=== PATIENT | male | born 1945 | race Caucasian/White ===

== ENCOUNTER 2020-06-05 10:55 | Outpatient (CLI) | payer MEDICARE, OTHER, SELFPAY ==
--- NOTE | 2020-06-05 11:06 | CT_ITS ---
WS: [id number] CTA OF THE CHEST WITH PULMONARY EMBOLISM PROTOCOL TECHNIQUE: High-resolution contrast enhanced CTA of the chest with coronal and sagittal reformatted i mages with pulmonary embolism protocol. MIP images are also reviewed. CLINICAL INFORMATION: CHEST PAIN/ELEVATED D DIMER COMPARISON: None. DLP: 583.[address] scans at [facility] use at least one of these dose optimization techniques: automat ed exposure control; mA and/or kV adjustment per patient size (includes targeted exams where dose is matched to clinical indication); or iterative reconstruction. FINDINGS: Proximal main pulmonary arteries are normal. Normal segmental and subsegmental pulmonary arteries. No evidence for pulmonary embolus. Normal caliber thoracic aorta. Aortic calcification. Coronary calcif ication. Sternotomy. Prior bypass grafting. Mild chronic emphysematous changes. No acute pulmonary infiltrates. No focal pneumonia or pleural flu id. A few calcified granulomas. Fibrosis in the right middle lobe. Noncalcified nodule in the right m iddle lobe measuring 3 mm. Splenic cyst or hemangioma partially visualized. Adrenal glands are normal . Partially visualized endograft in the abdominal aorta. CT/CT angio chest PE protcl [id number] IMPRESSION: 1. No evidence for pulmonary embolus. 2. No acute pulmonary infiltrates. Chronic emphysematous changes. 3. Normal caliber thoracic aorta. Aortic and coronary calcification. 4. No mediastinal or hilar lymphadenopathy.
[2020-06-05] MEDS: iohexol 350 mg/mL 100 mL Btl IV (12:02)
== END 2020-06-05 10:56 | disposition home or self-care (01) ==
LOC: RAD 11:04
PROVIDERS: PCP Family Medicine; Visit Provider Family Medicine
DX: R07.9 Chest pain, unspecified (principal); R79.89 Other specified abnormal findings of blood chemistry
CPT/HCPCS: 71275

== ENCOUNTER → 2021-02-04 09:46 | Outpatient (BNVA) | payer MEDICARE, OTHER, SELFPAY | PROVIDERS: PCP Family Medicine; Visit Provider Internal Medicine | DX: R12 Heartburn (principal); Z12.11 Encounter for screening for malignant neoplasm of colon; Z20.822 Contact with and (suspected) exposure to COVID-19 | CPT/HCPCS: 87635 ==

== ENCOUNTER 2021-02-11 08:57 | Day surgery (SDC) | payer MEDICARE, OTHER, SELFPAY ==
[2021-02-07 13:35] VITALS: BMI 22.4
--- NOTE | 2021-02-11 09:41 | P.HP_ITS ---
Same Day Surgery H&P Indication for Procedure/HPI DATE OF PROCEDURE: February 11, 2021 CHIEF COMPLAINT/INDICATIONFOR SURGICAL PROCEDURE: Unexplained weight loss unexplained weight loss PREOP DIAGNOSIS: Unexplained weight loss PLANNED PROCEDRUE: Operation Date: 02/11/21 10:00 Proposed Procedures p EGD 95547 R12(Not Applicable) - Blayne Guevara MD s Colonoscopy G0121 Z12.11(Not Applicable) - Blayne Guevara MD Medications/Allergies* Home Medications Medication Instructions Recorded Confirmed Type amiodarone 200 mg tablet 200 mg PO QDAY 08/03/19 02/07/21 History aspirin 81 mg tablet,delayed 81 mg PO QDAY 08/03/19 01/31/21 History release atorvastatin 40 mg tablet 40 mg PO QDAY 08/03/19 02/07/21 History carvedilol 6.25 mg tablet 6.25 mg PO BID 08/03/19 02/07/21 History citalopram 20 mg tablet 20 mg PO QDAY 08/03/19 02/07/21 History nitroglycerin 0.4 mg sublingual 0.4 mg SUBLINGUAL Q5M PRN 08/03/19 02/07/21 History tablet ramipril 1.25 mg capsule 1.25 mg PO QDAY 08/03/19 02/07/21 History tamsulosin 0.4 mg capsule 0.4 mg PO QDAY 08/03/19 02/07/21 History Allergies/Adverse Reactions Allergy/AdvReac Type Severity Reaction Status Date / Time meperidine [From Demerol] Allergy Unknown Unknown Verified 02/07/21 13:31 Pertinent History/Comorbid Conditions* Medical History (Updated 01/31/21 @ 10:42 by Blayne Guevara MD) Anticoagulant long-term use Xarelto ASHD (arteriosclerotic heart disease) Atrial fibrillation Dyslipidemia HTN (hypertension) Myocardial infarction SSS (sick sinus syndrome) Tobacco abuse Varicose veins of anus or rectum Surgical History (Updated 08/05/19 @ 12:08 by Gerard Palma MD) S/P AAA repair Patient had a AAA rupture and emergent repair with a stent graft S/P angioplasty with stent S/P CABG (coronary artery bypass graft) Details not known Status cardiac pacemaker Social History Smoking and tobacco status: current every day smoker cigarettes Packs smoked per day: 1 Alcohol intake: current Household members: spouse Marital status: service: No Current occupational status: unemployed Current gender identity: Male Pertinent Exam Findings alert, oriented x 3, clear to auscultation bilaterally, regular rate & rhythm, operative site marked and procedure specific exam findings Recommendations Surgery/Procedure today Coding Level of Care Code Acute [employer]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
[2021-02-11 09:52] VITALS: BP 153/80; PULSE 64; RESP 18; TEMP 36.1
--- NOTE | 2021-02-11 10:02 | P.ANESASSM_ITS ---
Pre-Anesthetic Assessment Pre-Anesthetic Assessment: Height/Weight: Height 1.83 m Weight 74.843 kg Temp Pulse Resp BP 97 F L 64 18 153/80 02/11/21 09:52 02/11/21 09:52 02/11/21 09:52 02/11/21 09:52 Preop Diagnosis: heartburn, screening Proposed Procedure: Operation Date: 02/11/21 10:00 Proposed Procedures p EGD 28500 R12(Not Applicable) - Blayne Guevara MD s Colonoscopy G0121 Z12.11(Not Applicable) - Blayne Guevara MD Was Beta Soco taken within 24 hours: Yes Was Clonidine taken within 24 hours: N/A Last intake: Intake Last Liquid Date 02/10/21 Last Liquid Time 21:00 Last Solid Date 02/09/21 Last Solid Time 18:00 Social: Social History: Alcohol and Tobacco Exam: Pre-Anes Outpt Exam: alert, oriented x 3 and regular rate & rhythm Airway: Submandibular: WNL Cervical ROM: WNL MP: 2 Pulmonary: Pulmonary: COPD CV/HEM: CV/HEM: Afib, CAD (Stents), HTN, [place] and PVD Comments: AAA repair, anitcoagulation Metabolic: Metabolic: Hyperlipidemia Anesthetic Plan: ASA status: 3 Anesthesia: MAC Risk of > 500 ml blood lo ss (7ml/kg in children): No PFSH Anesthesia PFSH: Medical History (Updated 01/31/21 @ 10:42 by Blayne Guevara MD) Anticoagulant long-term use Xarelto ASHD (arteriosclerotic heart disease) Atrial fibrillation Dyslipidemia HTN (hypertension) Myocardial infarction SSS (sick sinus syndrome) Tobacco abuse Varicose veins of anus or rectum Surgical History S/P AAA repair Patient had a AAA rupture and emergent repair with a stent graft S/P angioplasty with stent S/P CABG (coronary artery bypass graft) Details not known Status cardiac pacemaker Social History Smoking and tobacco status: current every day smoker cigarettes Packs smoked per day: 1 Alcohol intake: current Household members: spouse Marital status: service: No Current occupational status: unemployed Current gender identity: Male Data Anesthesia Cardiac Studies: No Data to Display
[2021-02-11] MEDS: sodium chloride 0.9% 1,000 ML 30 ML IV (10:17)
[2021-02-11 10:50] VITALS: BP 83/57; PULSE 66; RESP 16; TEMP 36.2; O2SAT 98
[2021-02-11 11:00] VITALS: BP 112/74; PULSE 60; RESP 18; O2SAT 97
--- NOTE | 2021-02-11 11:16 | ANE.PACU2 ---
Documented by User: Latha Ryan CRNA 02/11/21 11:16 Inpatient post-anesthesia follow up: Airway intact: Yes Vital signs: Temperature 97.1 F Pulse Rate 60 Respiratory Rate 18 Blood Pressure 112/74 Pulse Oximetry 97 Oxygen Delivery Me thod Room Air Oxygen Flow Rate Fraction of Inspir ed Oxygen Hydration adequate: Yes Nausea and vomiting: No Mental status: Baseline
[2021-02-12 07:06] LABS: H. Pylori / CLO Test Negative
== END 2021-02-11 11:20 | disposition home or self-care (01) ==
PROVIDERS: PCP Family Medicine; Visit Provider Internal Medicine
PROC: 0DJ08ZZ Inspection of Upper Intestinal Tract, Via Natural or Artificial Opening Endoscopic (ICD-10-PCS; CPT 43235; principal; 2021-02-11 10:00)
PROC: 0DJD8ZZ Inspection of Lower Intestinal Tract, Via Natural or Artificial Opening Endoscopic (ICD-10-PCS; CPT 45378; 2021-02-11 10:00)
DX: Z12.11 Encounter for screening for malignant neoplasm of colon (principal); R12 Heartburn; K44.9 Diaphragmatic hernia without obstruction or gangrene; K29.70 Gastritis, unspecified, without bleeding; Z79.82 Long term (current) use of aspirin; Z79.01 Long term (current) use of anticoagulants; E78.5 Hyperlipidemia, unspecified; I10 Essential (primary) hypertension; I25.2 Old myocardial infarction; F17.210 Nicotine dependence, cigarettes, uncomplicated; J44.9 Chronic obstructive pulmonary disease, unspecified; I48.91 Unspecified atrial fibrillation; I25.10 Atherosclerotic heart disease of native coronary artery without angina pectoris; Z95.5 Presence of coronary angioplasty implant and graft
CPT/HCPCS: 43239; 87077; 96360; G0121; J2704; J7030

== ENCOUNTER 2021-05-03 13:34 | Outpatient (CLI) | payer MEDICARE, OTHER, SELFPAY ==
--- NOTE | 2021-05-03 14:03 | CT_ITS ---
WS: [id number] Exam: CT abdomen pelvis w con* [id number] Date/Time of Exam: 05/03/2021 2:03 PM Reason For Exam: painful defecation DLP: 1109.[address] scans at [facility] use at least one of these dose optimization techniques: automated e xposure control; mA and/or kV adjustment per patient size (includes targeted exams where dose is matc hed to clinical indication); or iterative reconstruction. Comparison 04/04/2013. CT scan of the abdomen and pelvis with IV contrast. Lower lung zones are clear. Signs of previous CABG surgery. The liver is mildly lobulated in contour which might be seen with hepatic cirrhosis. A single tiny calcification noted in the gallbladder sugg esting a small stone. No sign of acute cholecystitis. The stomach and pancreas are unremarkable. Ther e is a 1.7 cm cyst in the spleen. The spleen is not enlarged. The portal vein and IVC are patent. Sma ll bilateral renal cysts are noted. The kidneys function and drain normally. Normal adrenal glands. A 7.5 cm abdominal aortic aneurysm has been repaired with a bifurcated stent. There is a mural thrombu s in the aneurysm sac. A tiny amount of contrast is also noted in the aneurysm sac that might represe nt a tiny endoleak. The stent appears to be patent. Small bowel loops are normal in caliber. 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 A stent is also seen in the left external iliac artery and is patent. There is diverticulosis of the sigmoid and lef t colon. No sign of acute diverticulitis. Normal appendix is visualized. No significant large bowel a bnormality is demonstrated otherwise. No lymphadenopathy. No free air. No mass in the pelvis. Intact urinary bladder. No destructive bone lesions are seen. Moderate degenerative change and levoscoliosis of the lumbar spine. CT/CT abdomen pelvis w con* [id number] IMPRESSION: 1. 7.5 cm aneurysm of the infrarenal abdominal aorta which is been repaired wit h an Endo stent. The Endo stent is patent. A small amount of contrast is noted along the bifurcated segment of the stent most likely indicating a tiny endolea k. 2. The liver is mildly lobulated in contour which might be seen with hepatic ci rrhosis. There is likely a tiny solitary stone in the gallbladder. 3. Colonic diverticulosis. No sign of acute diverticulitis. 4. Other minor chronic findings as indicated above.
[2021-05-03] MEDS: iohexol 300 mg/mL 50 mL Btl PO (14:08)
[2021-05-03 14:31] LABS: Blood Urea Nitrogen 10 mg/dL (8-23)
[2021-05-03] MEDS: iohexol 300 mg/mL 100 mL Btl IV (14:39)
== END 2021-05-03 13:35 | disposition home or self-care (01) ==
PROVIDERS: PCP Family Medicine; Visit Provider Internal Medicine
DX: R63.4 Abnormal weight loss (principal); R10.9 Unspecified abdominal pain; I71.4 Abdominal aortic aneurysm, without rupture; K57.90 Diverticulosis of intestine, part unspecified, without perforation or abscess without bleeding
CPT/HCPCS: 74177; 82565; 84520; Q9967

== ENCOUNTER → 2021-05-17 11:47 | Outpatient (BNVA) | payer MEDICARE, OTHER, SELFPAY | PROVIDERS: PCP Family Medicine; Visit Provider Surgery | DX: Z20.822 Contact with and (suspected) exposure to COVID-19 (principal); R10.9 Unspecified abdominal pain | CPT/HCPCS: 80053; 83690; 87635 ==

== ENCOUNTER 2021-05-22 09:00 | Day surgery (SDC) | payer MEDICARE, OTHER, SELFPAY ==
[2021-05-21 11:07] VITALS: BMI 21.9
[2021-05-22] VITALS (10 sets, daily range): BP systolic 123–178; BP diastolic 60–96; PULSE 61–88; RESP 14–24; TEMP 36.2–36.7; O2SAT 93–100
--- NOTE | 2021-05-22 09:08 | W.PM.OPSUD ---
Surgery/Procedure H&P Update DATE OF PROCEDURE: May 22, 2021 DATE H&P PERFORMED: 05/14/21 H&P UPDATE INFORMATION: I have reviewed H&P completed within last 30 days, I have examined patient prior to procedure and No changes to prior documentation PREOP DIAGNOSIS: heartburn, screening PLANNED PROCEDURE: Operation Date: 05/22/21 10:30 Proposed Procedures p Laparoscopic Cholecystectomy 85395 R10.9(Not Applicable) - Nilesh Giles MD
[2021-05-22] MEDS: sodium chloride 0.9% 1,000 ML 30 ML IV (10:00)
--- NOTE | 2021-05-22 10:25 | P.ANESASSM_ITS ---
Pre-Anesthetic Assessment Pre-Anesthetic Assessment: Height/Weight: Height 1.83 m Weight 73.482 kg Temp Pulse Resp BP Pulse Ox 98.0 F 65 18 131/74 93 05/22/21 09:43 05/22/21 09:43 05/22/21 09:43 05/22/21 09:43 05/22/21 09:43 Preop Diagnosis: Cholelithiasis Proposed Procedure: Operation Date: 05/22/21 10:30 Proposed Procedures p Laparoscopic Cholecystectomy 08465 R10.9(Not Applicable) - Nilesh Giles MD Was Beta Soco taken within 24 hours: Yes Was Clonidine taken within 24 hours: N/A Last intake: Intake Last Liquid Date 05/21/21 Last Liquid Time 20:00 Last Solid Date 05/21/21 Last Solid Time 17:00 Social: Social History: Alcohol and Tobacco Exam: Pre-Anes Outpt Exam: alert, oriented x 3 and regular rate & rhythm Airway: Submandibular: WNL Cervical ROM: WNL MP: 2 Dentition: Chipped Pulmonary: Pulmonary: COPD CV/HEM: CV/HEM: CAD (CABG), HTN, CT and PVD Comments: AAA s/p repair, pac emaker, anticoagulation GI: GI: GERD Metabolic: Metabolic: Hyperlipidemia Anesthetic Plan: ASA status: 3 Anesthesia: General Risk of > 500 ml blood loss (7ml/kg in children): No PFSH Anesthesia PFSH: Medical History (Updated 05/17/21 @ 16:10 by Ami Maza LPN) Anxiety ASHD (arteriosclerotic heart disease) Atrial fibrillation BPH (benign prostatic hyperplasia) Dyslipidemia HTN (hypertension) Myocardial infarction SSS (sick sinus syndrome) Surgical History (Updated 05/14/21 @ 17:03 by Nilesh Giles MD) H/O vasectomy History of colonoscopy History of esophagogastroduodenoscopy S/P AAA repair Patient had a AAA rupture and emergent repair with a stent graft S/P angioplasty with stent S/P CABG (coronary artery bypass graft) Details not known S/P cataract extraction S/P hemorrhoidectomy Status cardiac pacemaker Social History Alcohol intake: current Household members: spouse Marital status: service: No Current occupational status: unemployed Current gender identity: Male Data Anesthesia Cardiac Studies: No Data to Display
[2021-05-22] MEDS: ipratropium 0.5 mg/2.5 mL Neb INHALATION ×2 (12:16→12:47)
--- NOTE | 2021-05-22 12:24 | P.OP_ITS ---
Operative Report Date of procedure: May 22, 2021 Pre-op Diagnosis: Cholelithiasis Pre-op Diagnosis: 1 cm umbilical hernia Post-op diagnosis: same Procedure Done: Laparoscopic cholecystectomy Open primary repair of umbilical hernia Specimens removed/disposition: Gallbladder Surgeon: Nilesh Giles Anesthesia: General Condition: stable Disposition: PACU Procedure: The patient was taken to the operating room and was intubated under general anesthesia. After the antibiotic had been administered, the abdomen was prepped and draped in a sterile manner. Using a #15 blade, a 1 centimeter infraumbilical curvilinear incision was made and using an open Lyric technique the peritoneal cavity was entered. The hernia sac was dissected free from the surrounding subcutaneous tissue and excised and the omentum within the hernia sac was reduced. A 10 millimeter port was placed and 15 millimeters of pneumoperitoneum was created. A 10 millimeter, 30 degrees scope was then introduced. Three 5 millimeter ports were placed in the epigastric, midclavicular and the anterior axillary line two fingerbreadths below the costal margin on the right side under the direct visualization. Ratcheted forceps were introduced into the lateral most port and was used to retract the fundus of the gallbladder cephalad and using forceps the infundibulum of the gallbladder was retracted laterally. Using L-hook cautery the peritoneum overlying the Calot's triangle was opened medially and laterally until the cystic duct and the cystic artery were skeletonized. Dissection was carried along the body of the g allbladder and after ensuring critical view of safety, 4 clips applied on the cystic duct and 3 clips applied on the cystic artery and cut leaving, 3 clips on the remaining portion of the duct and 2 clips on the remaining portion of the artery. The rest of the gallbladder was dissected off the liver using L-hook cautery. There was no bleeding or bile leaking noted from the gallbladder fossa and the clips appeared to be in place. An EndoCatch bag was introduced to remove the gallbladder. All the ports were removed under direct visualization and there was no bleeding noted from the port sites. The fascia of the umbilical hernia was closed using [id number]-hybya 0 Vicryl sutures and the subcutaneous tissue was approximated using 3-0 Vicryl sutures. The skin at all four ports were closed using 4-0 Monocryl and Dermabond. A total of 10 millimeters of 0.5% Marcaine was infiltrated around the port sites. The patient was stable throughout the procedure.
[2021-05-22] MEDS: HYDROmorphone 1 mg/mL INJ 1 mL 0.5 MG IVP (13:31)
[2021-05-22] MEDS: HYDROcodone-acetaminophen 5-325 mg Tablet 1 TAB PO (14:16)
--- NOTE | 2021-05-22 14:55 | ANE.PACU2 ---
Inpatient post-anesthesia follow up: Airway intact: Yes Vital signs: Temperature 97.8 F Pulse Rate 62 Respiratory Rate 20 Blood Pressure 126/67 Pulse Oximetry 100 Oxygen Delivery Me thod Room Air Oxygen Flow Rate 6 Fraction of Inspir ed Oxygen Hydration adequate: Yes Nausea and vomiting: No Pain level: 3 Mental status: Baseline
== END 2021-05-22 14:00 | disposition home or self-care (01) ==
PROVIDERS: PCP Family Medicine; Visit Provider Surgery
PROC: 0FT44ZZ Resection of Gallbladder, Percutaneous Endoscopic Approach (ICD-10-PCS; CPT 47562; principal; 2021-05-22 10:30)
DX: R10.9 Unspecified abdominal pain (principal); K42.9 Umbilical hernia without obstruction or gangrene; I10 Essential (primary) hypertension; I25.2 Old myocardial infarction; F17.210 Nicotine dependence, cigarettes, uncomplicated; Z95.0 Presence of cardiac pacemaker; Z79.82 Long term (current) use of aspirin
CPT/HCPCS: 47562; 49585; 88304; 96365; J0690; J1170; J2704; J2710; J3010; J3490; J7030; J7611; J7644

== ENCOUNTER → 2021-06-05 09:27 | Outpatient (BNVA) | payer MEDICARE, OTHER, SELFPAY | PROVIDERS: PCP Family Medicine; Visit Provider Nurse Practitioner Family | DX: Z12.5 Encounter for screening for malignant neoplasm of prostate (principal); N39.0 Urinary tract infection, site not specified; N40.1 Benign prostatic hyperplasia with lower urinary tract symptoms; N13.8 Other obstructive and reflux uropathy | CPT/HCPCS: 81003; G0103 ==

== ENCOUNTER → 2021-09-03 10:34 | Outpatient (BNVA) | payer MEDICARE, SELFPAY | PROVIDERS: PCP Family Medicine; Visit Provider Urology | DX: N13.8 Other obstructive and reflux uropathy (principal); N40.1 Benign prostatic hyperplasia with lower urinary tract symptoms | CPT/HCPCS: 81003 ==

== ENCOUNTER → 2021-12-31 12:54 | Outpatient (BNVA) | payer MEDICARE, SELFPAY | PROVIDERS: PCP Family Medicine; Visit Provider Internal Medicine Cardiovascular Disease | DX: I25.10 Atherosclerotic heart disease of native coronary artery without angina pectoris (principal); Z98.890 Other specified postprocedural states; Z86.79 Personal history of other diseases of the circulatory system; I25.2 Old myocardial infarction; I48.91 Unspecified atrial fibrillation; Z95.1 Presence of aortocoronary bypass graft; I49.5 Sick sinus syndrome; E78.5 Hyperlipidemia, unspecified; I10 Essential (primary) hypertension; Z79.01 Long term (current) use of anticoagulants; F17.210 Nicotine dependence, cigarettes, uncomplicated | CPT/HCPCS: 99213 ==

== ENCOUNTER 2022-02-18 12:47 | Outpatient (CLI) | payer MEDICARE, OTHER, SELFPAY ==
--- NOTE | 2022-02-18 12:59 | CTR_ITS ---
PROCEDURE INFORMATION: Exam: CTA Chest With Contrast CTA Abdomen and Pelvis With Contrast Exam date and time: 02/18/2022 1:54 PM Age: 76 years old Clinical indication: Condition or disease; Other: Chronic mesenteric ischemiaa; Prior surgery; Surgery type: Graft, heart, pacemaker TECHNIQUE: Imaging protocol: Computed tomographic angiography of the chest with contrast. Computed tomographic angiography of the abdomen and pelvis with contrast. 3D rendering (Not supervised by radiologist): MIP and/or 3D reconstructed images were created by the technologist. Radiation optimization: All CT scans at this facility use at least one of these dose optimization techniques: automated exposure control; mA and/or kV adjustment per patient size (includes targeted exams where dose is matched to clinical indication); or iterative reconstruction. Contrast material: OMNI 350; Contrast volume: 95 ml; Contrast route: INTRAVENOUS (IV); COMPARISON: CT abdomen pelvis w con* [id number] 05/03/2021 2:36 PM RADIATION DOSE METRICS: Total DLP (mGy-cm): 2198.25 FINDINGS: Tubes, catheters and devices: Pacemaker leads noted VASCULATURE: Pulmonary arteries: Normal. No pulmonary emboli. Aorta: Moderate diffuse atherosclerotic disease is present. The patient is status post aorta bi-iliac stent graft repair of infrarenal abdominal aortic aneurysm. Unchanged aneurysm sac size measuring approximately 8.3 x 6.9 x 10.7 cm. No evidence of endoleak. Unchanged stented aneurysmal dilatation of the left internal iliac artery, with stable aneurysm sac size measuring 2.5 cm. Patent stents. Celiac trunk and mesenteric arteries: No occlusion or significant stenosis in the celiac trunk and SMA. The reconstituted DARCY is patent. Renal arteries: No occlusion. Unchanged moderate stenosis of the proximal left renal artery and mild stenosis of the proximal right renal artery.. Right iliac arteries: No occlusion or significant stenosis. Patent stent. Left iliac arteries: No occlusion or significant stenosis. Patent stents. CHEST: Lungs: There is increased reticular opacities, consistent with pulmonary fibrosis. Scattered bronchiectasis noted. Pneumonia should be excluded clinically. Pleural spaces: Unremarkable. No pneumothorax. No pleural effusion. Heart: Normal heart size. Coronary atherosclerotic calcifications seen. No pericardial effusion. ABDOMEN AND PELVIS: Liver: There is tiny calcific densities scattered throughout the liver, likely sequela of previous granulomatous disease. The liver is otherwise unremarkable. Gallbladder and bile ducts: The gallbladder has been surgically removed. Pancreas: Unremarkable. No mass. No ductal dilation. Spleen: There is tiny calcific densities scattered throughout the spleen, likely sequela of previous granulomatous disease. There is a 1.7 cm hypodense lesion in the spleen, likely representing a hemangioma. The spleen is otherwise unremarkable. Adrenal glands: Unremarkable. No mass. Kidneys and ureters: Bilateral renal cysts noted, the largest on the right measuring 2.3 cm. No hydronephrosis or nephrolithiasis. Stomach and bowel: There is diverticulosis without evidence of diverticulitis. Appendix: No evidence of appendicitis. Intraperitoneal space: Unremarkable. No free air. No significant fluid collection. Urinary bladder: Unremarkable. No mass. Reproductive: The prostate is enlarged. Lymph nodes: Unremarkable. No enlarged lymph nodes. Bones/joints: Mild levocurvature of the spine and multilevel degenerative changes seen. Median sternotomy changes seen. Soft tissues: Unremarkable. CT/CT angio abdomen pelvis [id number] IMPRESSION: Unchanged appearance of aorta bi-iliac stent graft repair of infrarenal abdominal aortic aneurysm and left internal iliac artery aneurysm, with patent stent, stable aneurysm sac size and no evidence of endoleak. COMMENTS: Consistent with the [employer]'s Incidental Findings Committee white paper (J Am Florian Radiol 2018): Any incidental renal lesion less than 1 cm or classified as too small to characterize, or any incidental cystic renal lesion characterized as simple-appearing, is likely benign. No follow-up imaging is recommended for these lesions per consensus recommendations based on imaging criteria.
[2022-02-18 13:53] LABS: Blood Urea Nitrogen 9 mg/dL (8-23)
[2022-02-18] MEDS: iohexol 350 mg/mL 100 mL Btl IV (14:15)
== END 2022-02-18 12:48 | disposition home or self-care (01) ==
PROVIDERS: Radiology Neuroradiology; PCP Family Medicine; Visit Provider Family Medicine
DX: K55.1 Chronic vascular disorders of intestine (principal); K55.059 Acute (reversible) ischemia of intestine, part and extent unspecified
CPT/HCPCS: 74174; 82565; 84520

== ENCOUNTER → 2022-06-06 11:21 | Outpatient (BNVA) | payer MEDICARE, OTHER, SELFPAY | PROVIDERS: PCP Family Medicine; Visit Provider Internal Medicine | DX: Z45.010 Encounter for checking and testing of cardiac pacemaker pulse generator [battery] (principal) | CPT/HCPCS: 93280 ==

== ENCOUNTER → 2022-07-01 14:44 | Outpatient (BNVA) | payer MEDICARE, OTHER, SELFPAY | PROVIDERS: PCP Family Medicine; Visit Provider Internal Medicine | DX: I25.10 Atherosclerotic heart disease of native coronary artery without angina pectoris (principal); F17.210 Nicotine dependence, cigarettes, uncomplicated; Z98.890 Other specified postprocedural states; Z86.79 Personal history of other diseases of the circulatory system; I25.2 Old myocardial infarction; Z95.0 Presence of cardiac pacemaker; Z95.1 Presence of aortocoronary bypass graft; I49.5 Sick sinus syndrome; E78.5 Hyperlipidemia, unspecified; I10 Essential (primary) hypertension; Z79.01 Long term (current) use of anticoagulants | CPT/HCPCS: 99214 ==

== ENCOUNTER → 2023-01-07 13:50 | Outpatient (BNVA) | payer MEDICARE, OTHER, SELFPAY | PROVIDERS: PCP Family Medicine; Visit Provider Internal Medicine Cardiovascular Disease | DX: R07.9 Chest pain, unspecified (principal); Z72.0 Tobacco use; I25.10 Atherosclerotic heart disease of native coronary artery without angina pectoris; Z98.890 Other specified postprocedural states; Z86.79 Personal history of other diseases of the circulatory system; Z95.0 Presence of cardiac pacemaker; I48.91 Unspecified atrial fibrillation; Z95.1 Presence of aortocoronary bypass graft; E78.5 Hyperlipidemia, unspecified; Z79.01 Long term (current) use of anticoagulants; I10 Essential (primary) hypertension; I25.2 Old myocardial infarction | CPT/HCPCS: 99215 ==

== ENCOUNTER 2023-01-27 10:05 | Outpatient (CLI) | payer MEDICARE, OTHER, SELFPAY ==
--- NOTE | 2023-01-27 | ECG_ITS ---
[facility] Test Date: 2023-01-27 Pat Name: Saw Sterling Department: Room: Gender: Male Town Marshal: Sofya Ortega : 1945 Requested By: Gerard Palma Order Number: [id number] Culp MD: Jossue Cartwright M.D. Interpretive Statements NAME OF STUDY: LEXISCAN SESTAMIBI STRESS TEST INDICATION: [Chest Pain; Shortness of Breath, ] Procedure: At the baseline, the blood pressure was 143/83 mmHg with a heart rate of 63 bpm. The electrocardiogram showed atrial fibrillation with a left bundle branch block. The Lexiscan was infused over a period of 20 seconds. A total of 0.4 mg of Lexiscan was infused. The stress phase was continued for a total of 5 minutes. Heart rate was at the end of stress phase was 64 bpm and a blood pressure of 127/82 mmHg. The EKG at the peak infusion revealed atrial fibrillation with no significant ST-T wave changes. Sestamibi was injected 20 seconds after the Lexiscan infusion. Blood pressure at the end of recovery phase was 119/83 mmHg with a heart rate of 60 bpm. Conclusion: 1. Normal EKG response to Lexiscan infusion 2. No Lexiscan induced chest pain or cardiac arrhythmia. 3. Normal blood pressure and heart rate response. 4. Sestamibi/sestamibi perfusion scan pending; see separate report. Electronically Signed On 02-08-2023 15:02:33 CDT by Jossue Cartwright M.D. [email or web address]
[2023-01-27 10:14] VITALS: BMI 21.7
--- NOTE | 2023-01-27 10:19 | NMCV_ITS ---
NM faye perf SPECT r/s* [id number] Saw Sterling Age: 77 Gender: M : 1945 Exam Date: 01/27/2023 10:57 Ordering Phys: Gerard Palma MD ([email or web address]) Technologist: BALJEET Cassidy Exam Location: [facility] Indications: CHEST PAIN, SHORTNESS OF BREATH STRESS TEST Please see separate stress test report in [facility] for full findings IMAGE PROTOCOL Rest/Stress 1 Lexiscan Day Radiopharmaceutical Dose (mCi) Administration Site Administered by Rest: Tc-99m 11.0 IV BALJEET Hernandez Sestamibi Stress:Tc-99m 32.5 IV BALJEET Hernandez Sestamibi Rest: 27-Jan-2023 60 Discovery 630 Stress: 27-Jan-2023 30 Discovery 630 0.4mg Lexiscan. Images obtained in supine and prone position. SPECT RESULTS Technical Quality: Excellent Raw Data Analysis: Normal Image Corrections: Patient motion artifact - motion correction applied Summed Stress Score: 13 Summed Rest Score: 12 Summed Difference Score: 1 PERFUSION FINDINGS Medium sized area of fixed perfusion defect is noted in apical wall. This is consistent with medium sized area of prior infarct in the LAD territory. Medium to large areas of fixed perfusion defect is noted in apical lateral, inferolateral, apical inferior and inferior rowell with minimal reversibility indicating large areas of prior infarcts in the left circumflex artery and RCA territories with minimal jake-infarct ischemia. FUNCTIONAL RESULTS (calculated via Gated SPECT) Stress Image LV EF (%): 66 Stress EDV (mL):77 TID: 0.85 Stress ESV (mL):26 FUNCTIONAL FINDINGS: LV systolic function is normal IMPRESSIONS 1. Medium sized area of prior infarct noted in the LAD territory. 2. Medium to large sized area of prior infarct with minimal jake-infarct ischemia is seen in the left circumflex artery and RCA territories. 3. LV systolic function is normal Jossue Cartwright MD (Electronically Signed) Final Date: 29 January 2023 09:22 S
[2023-01-27] MEDS: regadenoson 0.4 Mg/5 ml Syringe IVP (11:26)
[2023-01-27 11:43] VITALS: BP 119/87; PULSE 61
== END 2023-01-27 10:06 | disposition home or self-care (01) ==
LOC: CDL 10:05
PROVIDERS: PCP Family Medicine; Visit Provider Internal Medicine Cardiovascular Disease
DX: R07.9 Chest pain, unspecified (principal); R06.02 Shortness of breath; I25.2 Old myocardial infarction
CPT/HCPCS: 36415; 78452; 93017; 96374; A9500; J2785

== ENCOUNTER 2023-03-25 13:30 | Outpatient (CLI) | payer MEDICARE, OTHER, SELFPAY ==
--- NOTE | 2023-03-25 13:34 | CT_ITS ---
WS: [id number] CT ANGIOGRAPHY ABDOMEN AND PELVIS HISTORY: ANEURYSM OF ILIAC ARTERY TECHNIQUE: Noncontrast imaging first performed. CT angiogram is performed during IV injection. Reform ation images reviewed. MIP imaging. All CT scans at [facility] use at least one of these dose optimization techniques: automated exposure control; mA and/or kV adjustment per patient size (includ es targeted exams where dose is matched to clinical indication); or iterative reconstruction. CONTRAST: Omnipaque 350; 100 mL IV. DLP: 987.77 mGy.cm COMPARISON: 05/03/2021 and 02/18/2022 Chronic emphysematous changes at the lung bases. Abdominal aorta: Status post aortobiiliac stent graft due to large abdominal aortic aneurysm. Aneurys m sac measures 8.1 x 7.2 cm and extends over a length of 10 cm. Not significantly changing in size ov er the several past examinations. On the noncontrast study there is mild increased attenuation surrou nding the graft. This is similar to prior studies and this is on a noncontrast exam. On the postcontr ast exam no endovascular leaks are identified. Good opacification of the iliac arteries. Reidentified is the LEFT internal iliac artery aneurysm measuring 2.3 cm. Stent graft extends through this aneury sm also. No periaortic hematoma. No significant stenosis involving the origin of the SMA or celiac axis. Moderate stenosis proximal LE FT renal artery. Mild stenosis RIGHT renal artery. Kidneys are enhancing normally. Prior cholecystectomy. Reidentified is a splenic cyst which has actually decreased in size over the p ast several years. No bile duct dilatation. Normal pancreas. No adrenal mass. Bilateral renal cysts. No ascites or adenopathy. No GI tract obstruction. Normal appendix. Mild diverticular disease in the distal colon. No acute diverticulitis. Heavy prostate gland calcifications. IMPRESSION: 1. Stable appearance of the aortobiiliac stent graft since 02/18/2022. Large iroquois aneurysm is unchan ged in size. No para-aortic hematoma. 2. Stable LEFT internal iliac artery aneurysm with patent stent. 3. Bilateral renal cysts. 4. Prior cholecystectomy. 5. No ascites or adenopathy.
[2023-03-25] MEDS: iohexol 350 mg/mL 500 mL Btl (per mL) IV (14:16)
== END 2023-03-25 13:31 | disposition home or self-care (01) ==
PROVIDERS: PCP Family Medicine; Visit Provider Family Medicine
DX: I72.3 Aneurysm of iliac artery (principal); Z95.828 Presence of other vascular implants and grafts; I71.40 Abdominal aortic aneurysm, without rupture, unspecified; N28.1 Cyst of kidney, acquired; Z90.49 Acquired absence of other specified parts of digestive tract
CPT/HCPCS: 74174; Q9967

== ENCOUNTER → 2023-04-08 11:08 | Outpatient (BNVA) | payer MEDICARE, OTHER, SELFPAY | PROVIDERS: PCP Family Medicine; Visit Provider Internal Medicine Cardiovascular Disease | DX: I25.10 Atherosclerotic heart disease of native coronary artery without angina pectoris (principal); Z72.0 Tobacco use; Z98.890 Other specified postprocedural states; Z86.79 Personal history of other diseases of the circulatory system; Z95.0 Presence of cardiac pacemaker; I48.91 Unspecified atrial fibrillation; Z95.1 Presence of aortocoronary bypass graft; E78.5 Hyperlipidemia, unspecified; I10 Essential (primary) hypertension; Z79.01 Long term (current) use of anticoagulants; I25.2 Old myocardial infarction | CPT/HCPCS: 99214 ==

== ENCOUNTER → 2023-09-18 11:22 | Outpatient (BNVA) | payer MEDICARE, OTHER, SELFPAY | PROVIDERS: PCP Family Medicine; Visit Provider Internal Medicine | DX: Z53.9 Procedure and treatment not carried out, unspecified reason (principal) | CPT/HCPCS: 93280 ==

== ENCOUNTER 2024-09-17 14:11 | Emergency (ER) | payer MEDICARE, OTHER, SELFPAY ==
[2024-09-17] VITALS (8 sets, daily range): BP systolic 137–146; BP diastolic 71–76; PULSE 61–88; RESP 18; TEMP 36.3; O2SAT 90–93
--- NOTE | 2024-09-17 14:39 | XRR_ITS ---
PROCEDURE INFORMATION: Exam: XR Chest Exam date and time: 09/17/2024 3:08 PM Age: 78 years old Clinical indication: Cough; Prior surgery; Surgery date: 6+ months; Surgery type: Cardiac stent; Cabg; Aaa repair; Pacemaker; Additional info: Cough, congestion TECHNIQUE: Imaging protocol: Radiologic exam of the chest. Views: 1 view. COMPARISON: CT angio chest PE protcl [id number] 06/05/2020 11:50 AM FINDINGS: Tubes, catheters and devices: Dual lead cardiac pacemaker device noted. Lungs: Chronic interstitial opacities in the lung bases. No lobar consolidation. Pleural spaces: Unremarkable. No pleural effusion. No pneumothorax. Heart/Mediastinum: Postsurgical changes of the mediastinum related to CABG. Bones/joints: Unremarkable. XR/XR chest 1V portable [id number] IMPRESSION: As above.
--- NOTE | 2024-09-17 14:40 | ED_ITS ---
HPI - URI/Sore Throat 2 General: Chief Complaint: Upper Respiratory Infection Stated Complaint: congestion Time Seen by Provider: 09/17/24 14:21 History of Present Illness: Hung Sterling is a 78-year-old man that presents to the emergency department with upper respiratory illness that started on Thursday. Patient reports he has nasal congestion, sore throat, sneezing and coughing. He has a productive cough. He complains of chest discomfort with coughing. Denies chest discomfort at rest. He reports chilling but unknown if he has had fevers. Patient has a history that includes cardiovascular disease, hypertension, hyperlipidemia, GERD, atrial fibrillation, sick sinus syndrome. He is anticoagulated on Xarelto. Incidentally, is concerned about hematuria. He had blood in his urine last week Associated symptoms: Reports chills, chest pain, ear or mastoid pain, fever(s) and nasal congestion; Deny abdominal pain, diarrhea, headache(s), nausea, sinus pain or vomiting Related Data Home Medications ?Medication ?Instructions ?Recorded ?Confirmed aspirin 81 mg tablet,delayed 81 mg PO QDAY 08/03/19 release (Adult Low Dose Aspirin) atorvastatin 40 mg tablet 40 mg PO QDAY 08/03/1904/08 carvedilol 6.25 mg tablet 6.25 mg PO BID 08/03/1910/26 citalopram 20 mg tablet 20 mg PO QDAY 08/03/1904/08 Previous Rx's ?Medication ?Instructions ?Recorded ondansetron HCl 4 mg tablet 4 mg PO Q6H PRN nausea and 05/22/21 (Zofran) vomiting #20 tabs amiodarone 200 mg tablet 200 mg PO QDAY #30 tabs 03/07 08/27 pantoprazole 40 mg tablet,delayed 40 mg PO DAILY #90 t abs 03/27/22 release ramipril 1.25 mg capsule 1.25 mg PO QDAY #90 caps tamsulosin 0.4 mg capsule See Rx Instructions .Route 1 08/25/21 .COMPLEX #180 caps amlodipine 2.5 mg tablet 2.5 mg PO QDAY #90 tabs 11/03 08/28 nitroglycerin 0.4 mg sublingual 0.4 mg sublingual Q5M PRN Chest 06/08/24 tablet (Nitrostat) Pain #25 tabs rivaroxaban 20 mg tablet (Xarelto) 20 mg PO DAILY #90 tabs 09/15/24 albuterol sulfate 90 mcg/actuation 2 inh inhalation 6X D PRN shortness 09/17/24 aerosol inhaler (Ventolin HFA) of breath or wheezing # 8.5 grams doxycycline hyclate 100 mg tablet 100 mg PO BID 7 days #14 tabs 09/17/24 Allergies Allergy/AdvReac Type Severity Reaction Status Date / Time meperidine (From Demerol) Allergy Unknown Unknown Verified 09/17/24 14:17 Review of Systems 2 General: Reports: 10 or more systems reviewed and unremarkable except in HPI and below Const: Reports: fever(s), chills, body aches, change in appetite, fatigue and malaise; Denies: change in weight Eyes: Reports: other (Burning intermittently); Denies: change in vision, eye discomfort, eye discharge or eye redness ENMT: Reports: throat pain, odynophagia, hoarseness, ear or mastoid pain, nasal discharge, nasal congestion and post nasal drip; Denies: enlarged tonsils, ear discharge, change in hearing, tinnitus or sinus pain Card: Reports: chest pain; Denies: palpitations, irregular heart rhythm, edema, dyspnea on exertion, orthopnea or leg pain with exertion Resp: Reports: dyspnea, productive cough, chest congestion and other (Chest pain with cough); Denies: non-productive cough, wheezing or stridor GI: Denies: abdominal pain, nausea, vomiting, dysphagia, diarrhea, constipation, bloating, GI cramping or hematochezia : Denies: flank pain, dysuria, urinary frequency, urinary urgency, urinary hesitancy, oliguria or hematuria Musc: Denies: neck pain, back pain, extremity pain, joint pain, joint swelling, joint redness, joint warmth or muscle weakness Skin/Breast: Denies: rash, pruritus, erythema, photosensitivity or new lesions Neuro: Denies: headache(s), numbness in extremities, weakness in extremities, sensory changes, lack of coordination, difficulty walking, frequent falls, dizziness, confusion, Slurred speech present, difficulty communicating thoughts, seizure-like activity or involuntary movements Endo: Denies: polyuria, polydipsia or tired all the time Cristofer/Lymph: Denies: easy bruising or easy bleeding PFSH ED 2 PFSH: Medical History Anxiety ASHD (arteriosclerotic heart disease) Atrial fibrillation BPH (benign prostatic hyperplasia) BPH w urinary obs/LUTS Chest pain Dyslipidemia HTN (hypertension) Myocardial infarction SSS (sick sinus syndrome) Surgical History H/O vasectomy History of colonoscopy History of esophagogastroduodenoscopy S/P AAA repair Patient had a AAA rupture and emergent repair with a stent graft S/P angioplasty with stent S/P CABG (coronary artery bypass graft) Details not known S/P cataract extraction S/P hemorrhoidectomy Status cardiac pacemaker Status post laparoscopic cholecystectomy (05/22/21) Family History Father , UNKNOWN AGE Heart attack Mother , UNKNOWN AGE Natural Social History Smoking and tobacco/nicotine status: current every day tobacco/nicotine user cigarettes Packs smoked per day: 1 Alcohol intake: current Alcohol intake frequency: 3 or more drinks per day Substance/Drug Use: never Household members: spouse Marital status: Current occupational status: unemployed Current gender identity: Male Physical Exam 2 Const: COMMON NORMALS: no acute distress, patient oriented x3 and alert G ENERAL APPEARANCE: cooperative ORIENTATION/CONSCIOUSNESS: Yes awake, Yes oriented to person, Yes oriented to place and Yes oriented to time HENMT: COMMON NORMALS: normocephalic and atraumatic HEAD & SCALP: n ormocephalic and atraumatic FACE & SINUS: normal facial exam MOUTH: Normal oral and palatal mucosa present THROAT: posterior oropharynx abnormal cobblestoning and erythema Eye: COMMON NORMALS: Equal, round and reactive pupils present, EOMs intact bilaterally, conjunctivae normal and no scleral icterus GENERAL EYE: a ppearance normal, both eyes and all related structures ALIGNMENT: Yes alignment normal PERIORBITAL: periorbital findings normal CONJUNCTIVA: Yes conjunctivae normal PUPIL: Yes Equal, round and reactive pupils present Neck/C-Spine: COMMON NORMALS: full ROM GENERAL: Yes normal visual inspection Lymph: LYMPHATIC: no lymphadenopathy noted Chest: COMMONS NORMALS: normal inspection of the chest Breast/axilla inspection: Yes no chest deformity, asymmetry, normal contours, no nodules, masses, tenderness Resp: COMMON NORMALS: normal respiratory effort, No retractions and No use of accessory muscles EFFORT & INSPECTION: Yes able to speak in complete sentences and Yes symmetric chest movement AUSCULTATION: rhonchi and wheezes expiratory wheezes, lower bilaterally and upper bilaterally Cardio: COMMON NORMALS: regular rate, regular rhythm and Peripheral pulses 2+ throughout RATE: regular rate RHYTHM: regular rhythm PERIPHERAL PULSES: Peripheral pulses 2+ throughout GI: COMMON NORMALS: Normal to inspection, nondistended, normoactive bowel sounds present, Soft to palpation, non-tender and No hepatosplenomegaly present INSPECTION: Yes normal to inspection AUSCULTATION: Yes normoactive bowel sounds PALPATION: Yes Soft to palpation and Yes No hepatosplenomegaly present RECTAL EXAM: Yes deferred Extremity: COMMON NORMALS: normal to inspection GENERAL: Yes normal exam except as noted Neuro: COMMON NORMALS: patient oriented x3 SENSORIUM/ORIENTATION: Yes alert, Yes oriented to person, Yes oriented to place and Yes oriented to time CRANIAL NERVES: Yes CN normal except as noted Psych: COMMON NORMALS: mental status grossly normal, Normal thought process present, cooperative, activity/motor behavior normal, denies homicidal ideation and denies suicidal ideation THOUGHT PROCESS: Normal thought process present Skin: COMMON NORMALS: no rashes or lesions noted, no wounds and turgor normal GENERAL SKIN EXAM: no rashes or lesions noted and turgor normal Course 2 Vital Signs: Vital signs: Vital Signs Temperature 97.3 F L 09/17/24 14:14 Pulse Rate 70 09/17/24 17:11 Respiratory Rate 18 09/17/24 17:09 Blood Pressure 137/71 09/17/24 16:30 Pulse Oximetry 90 09/17/24 17:06 Oxygen Delivery Me thod Room Air 09/17/24 17:09 MDM - URI/Sore Throat Medical Decision Making Patient evaluated in the emergency department today for cough, congestion, shortness of breath. Differential diagnosis include pulmonary, cardiac, neurologic differentials. Here in the emergency department patient underwent a chest x-ray, EKG series, laboratory evaluation. Laboratory evaluation revealed no leukocytosis, anemias. Patient does display slight thrombocytopenia with platelet count of 100 50K There is no significant electrolyte abnormality. His initial troponin was 15. A 2-hour delta of 1.7 EKG performed at 1526. Reveals sinus rhythm with occasional PVC, right bundle branch block. EKG reviewed by Dr. Kruse Chest x-ray revealed bilateral opacities. He was treated for community-acquired pneumonia. Doxycycline was started. Now wheezing upon arrival did improve with a number of DuoNeb treatments. Patient does not have albuterol inhaler at home. Is going to go home with doxycycline twice daily and albuterol. We did have RT assess him for home O2 needs. He did not meet criteria. I have advised them that should his symptoms worsen, he needs to return to the emergency department for reevaluation. Both he and his are in agreement. Lab Data 09/17/24 15:00 09/17/24 15:00 Radiology Impressions Chest X-Ray 09/17/24 14:39 IMPRESSION: As above. Laboratory Results WBC 4.49 10^3/uL (3.29-11.43) 09/17/24 15:00 RBC 4.98 10^6/uL (3.85-5.65) 09/17/24 15:00 Hgb 16.40 g/dL (11.27-16.99) 09/17/24 15:00 Hct 48.7 % (37-53) 09/17/24 15:00 MCV 97.8 fl (82-101) 09/17/24 15:00 MCH 32.9 pg (27-33) 09/17/24 15:00 MCHC 33.7 g/dL (30-55) 09/17/24 15:00 RDW 13.1 % (12.1-15.1) 09/17/24 15:00 Plt Count 150 10^3/cmm (157-399) L 09/17/24 15:00 MPV 9.7 fL (7.4-10.4) 09/17/24 15:00 Neut % (Auto) 54.8 % 09/17/24 15:00 Lymph % (Auto) 29.4 % 09/17/24 15:00 Gregory % (Auto) 13.4 % 09/17/24 15:00 Eos % (Auto) 1.3 % 09/17/24 15:00 Baso % (Auto) 0.9 % 09/17/24 15:00 Neut # (Auto) 2.46 10^3/uL (1.8-7.7) 09/17/24 15:00 Lymph # (Auto) 1.3 10^3/uL (0.8-4.8) 09/17/24 15:00 Gregory # (Auto) 0.6 10^3/uL (0.2-0.9) 09/17/24 15:00 Eos # (Auto) 0.1 10^3/uL (0.0-0.8) 09/17/24 15:00 Baso # (Auto) 0.0 10^3/uL (0.0-0.1) 09/17/24 15:00 Nucleated RBC % (auto) 0 % 09/17/24 15:00 Nucleated RBCs # 0.0 /100WBC 09/17/24 15:00 Sodium 138 mmol/L (136-145) 09/17/24 15:00 Potassium 4.1 mmol/L (3.5-5.1) 09/17/24 15:00 Chloride 101 mmol/L (98-107) 09/17/24 15:00 Carbon Dioxide 25 mmol/L (22-29) 09/17/24 15:00 Anion Gap 16.1 (5-19) 09/17/24 15:00 BUN 9 mg/dL (8-23) 09/17/24 15:00 Creatinine 0.9 mg/dL (0.7-1.2) 09/17/24 15:00 GFR Calculation Not Reportable 09/17/24 15:00 Glucose 96 mg/dL (65-115) 09/17/24 15:00 Calculated Osmolality 285 mOsm/kg (285-295) 09/17/24 15:00 Calcium 9.2 mg/dL (8.5-10.5) 09/17/24 15:00 Total Bilirubin 0.4 mg/dL (0.15-1.2) 09/17/24 15:00 AST 17 U/L (0-40) 09/17/24 15:00 ALT 15 U/L (0-41) 09/17/24 15:00 Alkaline Phosphatase 122 U/L (40-130) 09/17/24 15:00 Troponin T Baseline 15 ng/L (0-15) 09/17/24 15:00 Troponin T 120 Minute 16.70 ng/L (0-15) H 09/17/24 17:35 Delta Troponin T 1.70 ABS# (0-10) 09/17/24 17:35 Total Protein 7.7 g/dL (6.6-8.7) 09/17/24 15:00 Albumin 4.0 g/dL (3.5-5.2) 09/17/24 15:00 Globulin 3.7 g/dL (1.3-4.6) 09/17/24 15:00 Urine Color Dark yellow (Yellow) A 09/17/24 15:00 Urine Appearance Clear (CLEAR) 09/17/24 15:00 Urine pH 5.5 (5-7) 09/17/24 15:00 Ur Specific [place] 1.025 (1.005-1.030) 09/17/24 15:00 Urine Protein Negative (Negative) 09/17/24 15:00 Urine Glucose (UA) Negative (Normal) 09/17/24 15:00 Urine Ketones Trace (Negative) 09/17/24 15:00 Urine Blood Negative (Negative) 09/17/24 15:00 Urine Nitrate Negative (Negative) 09/17/24 15:00 Urine Bilirubin Negative (Negative) 09/17/24 15:00 Urine Urobilinogen 1.0 mg/dL (Negative) 09/17/24 15:00 Ur Leukocyte Esterase Negative (Negative) 09/17/24 15:00 Urine RBC 0-2 /hpf (0-2) 09/17/24 15:00 Urine WBC 0-5 /hpf (0-5) 09/17/24 15:00 Ur Squamous Epith Cells 0-5 /hpf (0-5) 09/17/24 15:00 Amorphous Sediment Not Reportable 09/17/24 15:00 Urine Bacteria None seen /hpf (NONE) 09/17/24 15:00 Hyaline Casts 0.81 /lpf 09/17/24 15:00 Influenza A (PCR) Negative (Negative) 09/17/24 15:00 Influenza Type B (PCR) Negative (Negative) 09/17/24 15:00 RSV (PCR) Negative (Negative) 09/17/24 15:00 SARS-CoV-2 (PCR) Negative (Negative) 09/17/24 15:00 All radiology interpretation(s) finalized by discharge Discharge Plan Discharge Patient Disposition: Home Clinical Impression: Community acquired pneumonia Condition: Stable Prescriptions: New albuterol sulfate [Ventolin HFA] 90 mcg/actuation HFA aerosol inhaler 2 inh inhalation 6XD PRN (Reason: shortness of breath or wheezing) Qty: 8.5 0RF doxycycline hyclate 100 mg tablet 100 mg PO BID 7 Days Qty: 14 0RF No Action carvedilol 6.25 mg tablet 6.25 mg PO BID aspirin [Adult Low Dose Aspirin] 81 mg tablet,delayed release (DR/EC) 81 mg PO QDAY atorvastatin 40 mg tablet 40 mg PO QDAY citalopram 20 mg tablet 20 mg PO QDAY pantoprazole 40 mg tablet,delayed release (DR/EC) 40 mg PO DAILY Qty: 90 8RF amiodarone 200 mg tablet 200 mg PO QDAY Qty: 30 3RF ramipril 1.25 mg capsule 1.25 mg PO QDAY Qty: 90 1RF tamsulosin 0.4 mg capsule See Rx Instructions .ROUTE .COMPLEX Qty: 180 3RF Dose Instruction: TAKE ONE CAPSULE BY MOUTH TWICE DAILY Rx Instructions: TAKE ONE CAPSULE BY MOUTH TWICE DAILY amlodipine 2.5 mg tablet 2.5 mg PO QDAY Qty: 90 3RF nitroglycerin [Nitrostat] 0.4 mg tablet, sublingual 0.4 mg SUBLINGUAL Q5M PRN (Reason: Chest Pain) Qty: 25 0RF Rx Instructions: PATIENT MUST MAKE APPOINTMENT AND BE SEEN FOR FURTHER REFILLS Xarelto 20 mg tablet 20 mg PO DAILY Qty: 90 0RF Rx Instructions: PATIENT MUST MAKE APPOINTMENT AND BE SEEN FOR FURTHER REFILLS Zofran 4 mg tablet 4 mg PO Q6H PRN (Reason: nausea and vomiting) Qty: 20 0RF Discharge Orders: Discharge ED (Routine); Ordered 09/17/24 Ordered By: Sue Quintana [facility] [place]errals: Camilo Velazco MD [Primary Care Provider] - Discharge Diet: Advance as tolerated Discharge Activity: Resume usual activity Patient Instructions: Doxycycline (By mouth), Albuterol (By breathing) (ProAir, AccuNeb, Proventil, Proventil..., Community Acquired Pneumonia (ED), Opioid Safety, Pain Management Activity Restrictions/Additional Instructions: Please return to the emergency department for new, concerning, worsening symptoms Please follow-up with primary care doctor. Call Thursday for reevaluation appointment. Please take your antibiotics and use your albuterol inhaler as instructed. 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
[2024-09-17] MEDS: sodium chloride 0.9% 1,000 ML 999 ML IV (15:10)
[2024-09-17] MEDS: ipratropium-albuterol 3 mL Neb INHALATION ×4 (15:12→17:01)
[2024-09-17 15:16] LABS: Basophils % 0.9 %; Eosinophils # 0.1 10^3/uL (0.0-0.8); Eosinophils % 1.3 %; Hematocrit 48.7 % (37-53); Lymphocytes # 1.3 10^3/uL (0.8-4.8); Lymphocytes % 29.4 %; Mean Corpuscular HGB Conc 33.7 g/dL (30-55); Mean Corpuscular Hemoglobin 32.9 pg (27-33); Mean Corpuscular Volume 97.8 fl (82-101); Mean Platelet Volume 9.7 fL (7.4-10.4); Monocytes # 0.6 10^3/uL (0.2-0.9); Monocytes % 13.4 %; Neutrophils # 2.46 10^3/uL (1.8-7.7); Neutrophils % 54.8 %; Nucleated Red Blood Cells % 0 %; Platelet Count 150 10^3/cmm (157-399); Red Blood Count 4.98 10^6/uL (3.85-5.65); Red Cell Distribution Width 13.1 % (12.1-15.1); White Blood Count 4.49 10^3/uL (3.29-11.43)
[2024-09-17 15:21] LABS: Bilirubin Urine Negative (Negative); Blood Urine Negative (Negative); Glucose Urine UA Negative (Normal); Ketones Urine Trace (Negative); Leukocyte Esterase Urine Negative (Negative); Nitrate Urine Negative (Negative); Protein Urine Negative (Negative); Specific Gravity, Urine 1.025 (1.005-1.030); Urine Appearance Clear (CLEAR); Urine Color Dark Yellow (Yellow); pH Urine 5.5 (5-7)
[2024-09-17 15:26] LABS: Add Urine Microscopic? YES; Bacteria Urine None Seen /hpf; Hyaline Casts Urine 0.81 /lpf; RBC Urine 0-2 /hpf (0-2); Squamous Epithelial Cell Urine 0-5 /hpf (0-5); Troponin(5th) Baseline 15 ng/L (0-15); WBC Urine 0-5 /hpf (0-5)
--- NOTE | 2024-09-17 15:26 | ECG_ITS ---
[facility] 2024-[facility]-17 Pat Name: Saw Sterling Department: Room: Gender: Male Surgeon'S Assistant: : [id number] Requested By: Sue Quintana Order Number: [id number] Reading MD: MYNOR GALVEZ Measurements Intervals [place] Rate: 65 P: 36 OR: 216 QRS: -61 QRSD: 182 T: -3 QT: 461 QTc: 480 Interpretive Statements SINUS RHYTHM WITH FIRST DEGREE AV BLOCK WITH OCCASIONAL VENTRICULAR PREMATURE COMPLEXES RIGHT BUNDLE BRANCH BLOCK [120+ ms QRS DURATION, UPRIGHT V1, 40+ ms S IN I/aVL/V4/V5/V6] LEFT ANTERIOR FASCICULAR BLOCK [QRS AXIS <= -45, QR IN I, RS IN II] No previous ECG available for comparison Electronically Signed On 09-19-2024 18:11:02 CDT by MYNOR GALVEZ [email or web address]
[2024-09-17 15:33] LABS: Alanine Aminotransferase 15 U/L (0-41); Alkaline Phosphatase 122 U/L (40-130); Anion Gap 16.1 (5-19); Aspartate Amino Transferase 17 U/L (0-40); Blood Urea Nitrogen 9 mg/dL (8-23); Calcium 9.2 mg/dL (8.5-10.5); Carbon Dioxide 25 mmol/L (22-29); Chloride 101 mmol/L (98-107); Creatinine Clr Calc Pharmacy 72.0113; Globulin 3.7 g/dL (1.3-4.6); Glucose 96 mg/dL (65-115); Osmolality Calculated 285 mOsm/kg (285-295); Potassium 4.1 mmol/L (3.5-5.1); Sodium 138 mmol/L (136-145); Total Bilirubin 0.4 mg/dL (0.15-1.2); Total Protein 7.7 g/dL (6.6-8.7)
[2024-09-17 15:59] LABS: Influenza A NEGATIVE (Negative); Influenza B NEGATIVE (Negative); Respiratory Syncytial Virus Ce NEGATIVE (Negative); SARS-CoV-2 PCR NEGATIVE (Negative)
[2024-09-17] MEDS: doxycycline 100 mg Tablet PO (16:47)
== END 2024-09-17 19:09 | disposition home or self-care (01) ==
PROVIDERS: Emergency Provider Nurse Practitioner; PCP Family Medicine
DX: J18.9 Pneumonia, unspecified organism (principal); Z11.52 Encounter for screening for COVID-19; Z79.82 Long term (current) use of aspirin; F17.210 Nicotine dependence, cigarettes, uncomplicated; Z95.1 Presence of aortocoronary bypass graft; E78.5 Hyperlipidemia, unspecified; I10 Essential (primary) hypertension
CPT/HCPCS: 36415; 71045; 80053; 81001; 84484; 85025; 87637; 93005; 94640; 94760; 96360; 96361; 99285; J7030; J9999

== ENCOUNTER 2025-03-31 13:49 | Outpatient (CLI) | payer MEDICARE, OTHER, SELFPAY ==
--- NOTE | 2025-03-31 13:58 | CT_ITS ---
WS: [id number] CT angio abdomen pelvis [id number] REASON FOR EXAM: AORTIC ANEURYSM REPAIR, POST PROCEEDURAL STATUS TECHNIQUE: Coronal and sagittal 2-D and MIP reformations. IV CONTRAST ADMINISTERED: Omnipaque 350 100 mL TECHNIQUE: Multiple axial images without intravenous contrast enhancement. Following intravenous administration of contrast multiple axial images were obtained during the arterial phase. COMPARISON EXAMINATION: 03/25/2023. TOTAL EXAM DLP: 1230.[address] scans at [facility] use at least one of these dose optimization techniques: automated exposure control; mA and/or kV adjustment per patient size (includes targeted exams where dose is matched to clinical indication); or iterative reconstruction. FINDINGS: On the nonenhanced examination there is minimal mild hyperintensity around the margin of the intra-aortic portion of the endograft. This is unchanged compared to the previous examination. After contrast administration, there are no areas of extravasation or enhancement within the aneurysmal sac. The dimensions of the aneurysmal sac have not changed measuring 8 x 7 x 10 cm. 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 Additional findings of left renal artery stenosis, post cholecystectomy, and bilateral renal cysts are unchanged compared to the previous examination. No new findings are noted. CT/CT angio abdomen pelvis [id number] IMPRESSION: Stable endograft without evidence of leak and no change in the aneurysmal sac s ize. Stable additional findings as above.
[2025-03-31] MEDS: iohexol 350 mg/mL 500 mL Btl (per mL) IV (14:02)
[2025-03-31 14:26] LABS: Blood Urea Nitrogen 9 mg/dL (8-23)
== END 2025-03-31 13:50 | disposition home or self-care (01) ==
LOC: RAD 13:52
PROVIDERS: PCP Family Medicine; Visit Provider Family Medicine
DX: Z98.890 Other specified postprocedural states (principal); N40.1 Benign prostatic hyperplasia with lower urinary tract symptoms
CPT/HCPCS: 74174; 82565; 84520